=== PATIENT | male | born 1940 | race Asian ===

== ENCOUNTER 2019-08-20 14:40 | Emergency (ER) | payer OTHER, MEDICAID ==
[~2019-08-20] VITALS: Ht 165.1 cm; Wt 74.8 kg
[2019-08-20] MEDS ORDERED: TDAP DIPH,PERTUSS,TET VAC/PF 0.5 ML DISP.SYRIN IM ONE ×2 (15:00→15:39)
[2019-08-20] MEDS ORDERED: ASPI-605 PO (15:01)
[2019-08-20] MEDS ORDERED: QUET25TA PO ×2 (15:01)
[2019-08-20] MEDS ORDERED: CLON0.5T4 PO (15:01)
[2019-08-20] MEDS ORDERED: ATOR80TA PO (15:01)
--- NOTE | 2019-08-20 16:55 | NUR ---
[facility] ETA 830
--- NOTE | 2019-08-20 17:01 | NUR ---
Ambul #[id number] on will call/standby waiting for any earlier transports
--- NOTE | 2019-08-20 18:00 | NUR ---
Report given to SULY Finn
--- NOTE | 2019-08-20 18:15 | NUR ---
PT PACING TO AND FROM ROOM AND TOWARDS NURSES STATION PT IS AOX1 REORIENTED AND REDIRECTABLE PENDING TRANSPORT AEROSPACE CONTROL AND WARNING SYSTEMS AT 1830 BACK TO [facility] PT NAD LAC REPAIR DONE NAD MONITORED ACCORDINGLY RECEIVED HAND OFF AND SBAR FR OUTGOING DAYSHIFT RN
--- NOTE | 2019-08-20 18:59 | NUR ---
transport at bedside hand off and sbar given pt is nad aox1 redirectable reoriented
--- NOTE | 2019-08-20 19:06 | NUR ---
Patient transported back to [facility].
[2019-08-20 19:07] VITALS: BP 135/81
== END 2019-08-20 19:07 | disposition home or self-care (01) ==
LOC: ER 14:44
DX: S01.81XA Laceration without foreign body of other part of head, initial encounter (principal); Z79.82 Long term (current) use of aspirin; Z79.899 Other long term (current) drug therapy; Y04.2XXA Assault by strike against or bumped into by another person, initial encounter; Y93.89 Activity, other specified; Y92.89 Other specified places as the place of occurrence of the external cause; Y99.8 Other external cause status
CPT/HCPCS: 70450; 70486; 90715; A4217; A4663

== ENCOUNTER 2019-12-17 16:38 | Inpatient (IN) | payer OTHER, MEDICAID ==
[~2019-12-17] VITALS: Ht 152.4 cm; Wt 67.1 kg
[~2019-12-17 16:38] MED LIST: ASPI-605 PO; ATOR80TA PO; CLON0.5T4 PO; QUET25TA PO
--- NOTE | 2019-12-17 16:52 | NUR ---
brought in by private ambulance via gurney from [facility] living pt is ra, c/o of cough and fever speaks tagalog aox2 temp at 99.9F full code placed on AIRBORNE/DROPLET PRECAUTIONS MONITORED ACCORDINGLY BED AT LOWEST POSITION SIDERAILSX2 UP Addendum: 12/17/19 at 1859 by MARICASTIL PT IS AOX1 (NAME) ABLE TO SPEAK TAGALOG WORDS CLEARLY BUT ONLY UPON STIMULI (E.G. IV INSERTION, IN AND OUT FRANCOIS)
[2019-12-17] MEDS ORDERED: ACETAMINOPHEN ES 500 MG TABLET ONE (16:58)
[2019-12-17] MEDS ORDERED: ACETAMINOPHEN ES 500 MG TABLET PO ONE (17:00)
[2019-12-17] MEDS ORDERED: CLON1TAB12 PO (17:01)
--- NOTE | 2019-12-17 17:05 | NUR ---
called hanna wagner to find out who is the pt's doctor. left a message.
[2019-12-17 17:52] LABS: BASOPHILS % (AUTO) 0.3 % (0.0-2.0); EOSINOPHILS % (AUTO) 0.1 % (0.0-7.0); HEMATOCRIT 39.6 % (36.7-47.1); HEMOGLOBIN 13.3 g/dL (12.5-16.3); LYMPHOCYTES # (AUTO) 0.8 K/uL (20.0-40.0); LYMPHOCYTES % (AUTO) 16.6 % (20.5-51.5); MEAN CORPUSCULAR HEMOGLOBIN 28.9 uug (23.8-33.4); MEAN CORPUSCULAR HGB CONC 34 g/dL (32.5-36.3); MEAN CORPUSCULAR VOLUME 86.3 fL (73.0-96.2); MONOCYTES # (AUTO) 0.7 K/uL (2.0-10.0); MONOCYTES % (AUTO) 14.1 % (0.0-11.0); NEUTROPHILS # (AUTO) 3.2 K/uL (1.8-8.9); NEUTROPHILS % (AUTO) 68.9 % (38.5-71.5); PLATELET COUNT (AUTO) 90 K/uL (152-348); RED BLOOD CELL COUNT(AUTO) 4.59 MIL/uL (4.06-5.63); WHITE BLOOD COUNT (AUTO) 4.7 K/uL (3.6-10.2)
--- NOTE | 2019-12-17 18:00 | NUR ---
PT ABLE TO PASS SWALLOW TEST PT ABLE TO TOLERATE PO MEDS
[2019-12-17 18:03] LABS: CREATININE 1.1 mg/dL (0.6-1.3); POTASSIUM 3.6 mmol/L (3.5-5.1)
[2019-12-17 18:22] LABS: BILIRUBIN,TOTAL 0.6 mg/dL (0.2-1.0)
[2019-12-17 18:23] LABS: TOTAL PROTEIN, SERUM 7.1 g/dL (6.4-8.2)
[2019-12-17] MEDS ORDERED: IV NORMAL SALINE 500 ML IV ONE (18:24)
[2019-12-17 18:30] LABS: BAND % (MANUAL) 5 % (0-10); LYMPHOCYTES % (MANUAL) 16 % (20-40); MONOCYTES % (MANUAL) 12 % (2-10); NEUTROPHILS % (MANUAL) 67 % (42-75)
[2019-12-17] MEDS ORDERED: ENOXAPARIN SODIUM 60 MG/0.6 ML DISP.SYRIN SQ ONE ×2 (18:30→18:34)
[2019-12-17 18:47] LABS: *BILIRUBIN,URIN NEGATIVE (NEGATIVE); *BLOOD, URINE 2+ (NEGATIVE); *CLARITY,URINE CLEAR (CLEAR); *COLOR,URINE YELLOW (YELLOW); *KETONES,URINE NEGATIVE (NEGATIVE); LEUKOCYTE ESTERASE ,URINE NEGATIVE (NEGATIVE); NITRITE, URINE NEGATIVE (NEGATIVE); UGLUCOSE NEGATIVE (NEGATIVE)
[2019-12-17 18:52] LABS: SQUAMOUS EPITHELIAL CELL,UR FEW /HPF (NONE SEEN); WBC,URINE 0-3 /HPF (0-3)
[2019-12-17 18:53] LABS: MUCUS,URINE MODERATE /LPF (0-FEW)
--- NOTE | 2019-12-17 18:56 | NUR ---
PT OK TO ADMIT TO TELE RM 206 DX: NSTEMI, NEW ONSET AFIB POSSIBLE COVID UNDER : BENEDICTO (SEEN BY BENEDICTO AT BEDSIDE) PENDING AVAILABILITY OF RECEIVING RN
[2019-12-17] MEDS ORDERED: ACETAMINOPHEN 650 MG SUPP.RECT RC PRN (19:00)
[2019-12-17] MEDS ORDERED: ONDANSETRON ODT 4 MG TAB.RAPDIS SL PRN (19:00)
--- NOTE | 2019-12-17 19:01 | NUR ---
HAND OFF AND SBAR GIVEN TO RESTAURANT GREETER NURSE
[2019-12-17 20:00] VITALS: BP 94/47
--- NOTE | 2019-12-17 20:00 | NUR ---
Pt. admitted to tele , under care of BENEDICTO BALDWIN Belongs List completed
--- NOTE | 2019-12-17 20:30 | NUR ---
Received patient from ER. Dx: PNA r/o COVID. No signs of acute distress noted. Patient is A/Ox1, garbled/clear speech at times. Heplock on the left AC is intact and patent. Skin assessment done, no open wound, multiple small scabs on lower extremities. Vitals are WNL, no fevers noted. Safety measures initiated. Bed is low and locked, call light within reach. Patient oriented to unit and room. Will continue to monitor.
[2019-12-17] MEDS: IV D5 1/2 NS 1000 ML 1,000 ML IV PRN (23:55)
[2019-12-18 01:00] VITALS: BP 144/93
[2019-12-18 05:00] VITALS: BP 105/72
--- NOTE | 2019-12-18 06:11 | NUR ---
Patient confused, hard to redirect. Wants to get up to go to restroom but very unsteady. Able to help to the restroom with 2 people. ordered 1:1 sitter for morning shift, notified rail gang supervisor. Patient also pulled out IV when trying to get out of bed, inserted new one on the right forearm #20. Patient also noted with temp 99.6, cooling measures applied.
[2019-12-18 06:28] LABS: BASOPHILS % (AUTO) 0.2 % (0.0-2.0); EOSINOPHILS % (AUTO) 0.3 % (0.0-7.0); HEMATOCRIT 41.2 % (36.7-47.1); HEMOGLOBIN 13.6 g/dL (12.5-16.3); LYMPHOCYTES # (AUTO) 0.8 K/uL (20.0-40.0); MEAN CORPUSCULAR HEMOGLOBIN 28.9 uug (23.8-33.4); MEAN CORPUSCULAR HGB CONC 33 g/dL (32.5-36.3); MEAN CORPUSCULAR VOLUME 87.8 fL (73.0-96.2); MONOCYTES # (AUTO) 0.6 K/uL (2.0-10.0); MONOCYTES % (AUTO) 10.8 % (0.0-11.0); NEUTROPHILS # (AUTO) 4.1 K/uL (1.8-8.9); NEUTROPHILS % (AUTO) 73.7 % (38.5-71.5); PLATELET COUNT (AUTO) 98 K/uL (152-348); RED BLOOD CELL COUNT(AUTO) 4.69 MIL/uL (4.06-5.63); WHITE BLOOD COUNT (AUTO) 5.5 K/uL (3.6-10.2)
[2019-12-18 06:54] LABS: THYROID STIMULATING HORMONE 2.365 mIU/mL (0.358-3.740)
--- NOTE | 2019-12-18 07:20 | NUR ---
Received patient resting in bed. No s/s of acute distress or pain. Bed in lowest position, side rails up x2, call light within reach, sitter at bedside. Will continue to monitor.
[2019-12-18 07:33] LABS: BILIRUBIN,TOTAL 0.8 mg/dL (0.2-1.0); CREATININE 0.9 mg/dL (0.6-1.3); MAGNESIUM 1.9 mg/dL (1.8-2.4); PHOSPHOROUS 2.5 mg/dL (2.5-4.9); POTASSIUM 3.6 mmol/L (3.5-5.1); TOTAL PROTEIN, SERUM 7.3 g/dL (6.4-8.2)
[2019-12-18 07:39] VITALS: BP 100/58
[2019-12-18 07:52] LABS: EOSINOPHILS % (MANUAL) 1 % (0-8); LYMPHOCYTES % (MANUAL) 13 % (20-40); MONOCYTES % (MANUAL) 14 % (2-10); NEUTROPHILS % (MANUAL) 72 % (42-75)
[2019-12-18 12:00] VITALS: BP 113/79
[2019-12-18 14:37] VITALS: BP 114/57
--- NOTE | 2019-12-18 18:37 | NUR ---
patient received at around 330pm, sitter at bedside, patient frequently impulsive and trying to get out of bed. Bed in low position side rails up x2, bed alarm on.
--- NOTE | 2019-12-18 19:20 | NUR ---
Received patient resting in bed. No s/s of acute distress or pain. patient calm at this moment. Bed in lowest position, side rails up x2, call light within reach, sitter at bedside. Will continue to monitor.
[2019-12-18 20:00] VITALS: BP 134/67
[2019-12-18] MEDS ORDERED: ENOXAPARIN SODIUM 40 MG/0.4 ML DISP.SYRIN SQ ONE (21:00)
[2019-12-18] MEDS ORDERED: VANCOMYCIN IV 1,000 MG in IV DEXTROSE 5% 250 ML IV SCH ×3 (21:00→22:00)
--- NOTE | 2019-12-18 21:08 | NUR ---
PHARMACY CLINICAL NOTES (VANCOMYCIN DOSING) S: 78 yo male with dx of Acute febrile illness, r/o Covid 19, Poss HCAP. ID ordered Vancomcyin O: BUN/SCR 22/0.9, WBC 5.5 , T max 103, DOSING WT 142 LBS A/P: will dose Vancomcyin as 1000 mg q20h , estimate peak 29 trough of 18 , plan to order trough prior to 4th dose of Vanco not ordered yet. Will continue to monitor renal fxn and levels and adjust the dose as it becomes necessary.
[2019-12-18] MEDS: ATORVASTATIN 40 MG TABLET PO SCH (21:10)
[2019-12-18] MEDS: ASPIRIN EC 81 MG TABLET.DR PO SCH (21:10)
[2019-12-18] MEDS: CEFEPIME HCL 1 G in IV DEXTROSE 5% 50 ML IV SCH (21:10)
[2019-12-18] MEDS ORDERED: CEFEPIME HCL 1 G in IV DEXTROSE 5% 50 ML IV SCH (22:00)
[2019-12-19] VITALS: BP 108/65
[2019-12-19] MEDS: ACETAMINOPHEN 325 MG TABLET PO PRN ×3 (00:58→16:12)
[2019-12-19 04:00] VITALS: BP 106/63
[2019-12-19 05:29] LABS: BASOPHILS % (AUTO) 0.2 % (0.0-2.0); HEMOGLOBIN 13.3 g/dL (12.5-16.3); LYMPHOCYTES # (AUTO) 0.8 K/uL (20.0-40.0); LYMPHOCYTES % (AUTO) 11.6 % (20.5-51.5); MEAN CORPUSCULAR HEMOGLOBIN 28.9 uug (23.8-33.4); MEAN CORPUSCULAR HGB CONC 33 g/dL (32.5-36.3); MONOCYTES # (AUTO) 0.4 K/uL (2.0-10.0); MONOCYTES % (AUTO) 5.7 % (0.0-11.0); NEUTROPHILS # (AUTO) 5.6 K/uL (1.8-8.9); NEUTROPHILS % (AUTO) 82.5 % (38.5-71.5); PLATELET COUNT (AUTO) 108 K/uL (152-348); WHITE BLOOD COUNT (AUTO) 6.8 K/uL (3.6-10.2)
[2019-12-19 06:20] LABS: BILIRUBIN,TOTAL 0.9 mg/dL (0.2-1.0); MAGNESIUM 1.9 mg/dL (1.8-2.4); PHOSPHOROUS 2.6 mg/dL (2.5-4.9); POTASSIUM 3.3 mmol/L (3.5-5.1); TOTAL PROTEIN, SERUM 6.3 g/dL (6.4-8.2)
--- NOTE | 2019-12-19 06:28 | NUR ---
Patient has remained stable throughout the evening. patient bathed and all linens changed. Patient is resting comfortably with no signs of distress.
[2019-12-19] MEDS ORDERED: POTASSIUM CHLORIDE 20 MEQ TAB.PRT.SR PO ONE (07:00)
--- NOTE | 2019-12-19 07:15 | NUR ---
Received patient resting in bed, awake and alert. No acute distress noted. Patient denies pain and discomfort. Bed in lowest position, side rails up x2, call light within reach, sitter at bedside.
[2019-12-19 08:00] VITALS: BP 134/82
[2019-12-19] MEDS: ASPIRIN EC 81 MG TABLET.DR PO SCH (08:29)
[2019-12-19] MEDS: IV D5 1/2 NS 1000 ML 1,000 ML IV PRN (09:33)
--- NOTE | 2019-12-19 09:58 | NUR ---
PHARMACY CLINICAL NOTES (VANCOMYCIN DOSING) S: To continue vanco dosing for this 78 yo male with dx of Acute febrile illness, r/o Covid 19, Poss HCAP. O: BUN/SCR 24/08 , WBC 6.8 , T max 100.7 ht 152 cm wt 64 kg A/P: will continue as Vancomcyin as 1000 mg q22h , estimated trough of 16 mcg/ml at steady state. 2nd dose today at 2100. Plan to order trough prior to 4th dose of Vanco (not ordered yet). Will continue to monitor renal fxn and levels and adjust the dose as it becomes necessary. Will follow
[2019-12-19 12:00] VITALS: BP 126/84
[2019-12-19 16:27] VITALS: BP 135/80
[2019-12-19] MEDS ORDERED: HYDROXYCHLOROQUINE SULFATE 200 MG TABLET PO ONE (16:30)
--- NOTE | 2019-12-19 18:34 | NUR ---
Patient rested throughout the day. No S/S of acute distress. Plaquenil started. safety measures provided. Will endorse to oncoming nurse.
[2019-12-19 20:04] VITALS: BP 125/77
--- NOTE | 2019-12-19 20:07 | NUR ---
per mayte in pharmacy. ok to administer lovenox despite plt at 108
[2019-12-19] MEDS: CEFEPIME HCL 1 G in IV DEXTROSE 5% 50 ML IV SCH (20:28)
[2019-12-19] MEDS: ENOXAPARIN SODIUM 40 MG/0.4 ML DISP.SYRIN SQ SCH (20:29)
[2019-12-19] MEDS: ATORVASTATIN 40 MG TABLET PO SCH (20:29)
[2019-12-19] MEDS ORDERED: VANCOMYCIN IV 1,000 MG in IV DEXTROSE 5% 250 ML IV SCH (21:00)
[2019-12-20] MEDS: IV D5 1/2 NS 1000 ML 1,000 ML IV PRN ×2 (00:06→14:07)
[2019-12-20] MEDS: ACETAMINOPHEN 325 MG TABLET PO PRN ×2 (00:50→12:29)
[2019-12-20 01:17] VITALS: BP 133/81
--- NOTE | 2019-12-20 04:25 | NUR ---
Patient a/ox1. No s/s of acute distress noted. v/s stable with fever at midnight. Tylenol administered. Afebrile. No changes. 2L NC sat. A-fib on tele monitor. safety precautions in place. all needs met. Will continue to monitor. Addendum: 12/20/19 at 0441 by PATY HARRISON RN correction: a flutter on tele monitor.
[2019-12-20 04:50] VITALS: BP 105/58
[2019-12-20 06:21] LABS: BASOPHILS % (AUTO) 0.4 % (0.0-2.0); HEMATOCRIT 41.4 % (36.7-47.1); HEMOGLOBIN 13.7 g/dL (12.5-16.3); LYMPHOCYTES # (AUTO) 0.5 K/uL (20.0-40.0); LYMPHOCYTES % (AUTO) 5.5 % (20.5-51.5); MEAN CORPUSCULAR HEMOGLOBIN 28.7 uug (23.8-33.4); MEAN CORPUSCULAR HGB CONC 33 g/dL (32.5-36.3); MEAN CORPUSCULAR VOLUME 86.4 fL (73.0-96.2); MONOCYTES # (AUTO) 0.3 K/uL (2.0-10.0); MONOCYTES % (AUTO) 2.8 % (0.0-11.0); NEUTROPHILS # (AUTO) 8.7 K/uL (1.8-8.9); NEUTROPHILS % (AUTO) 91.3 % (38.5-71.5); PLATELET COUNT (AUTO) 122 K/uL (152-348); RED BLOOD CELL COUNT(AUTO) 4.79 MIL/uL (4.06-5.63); WHITE BLOOD COUNT (AUTO) 9.5 K/uL (3.6-10.2)
[2019-12-20 06:39] LABS: BILIRUBIN,TOTAL 0.8 mg/dL (0.2-1.0); MAGNESIUM 1.9 mg/dL (1.8-2.4); PHOSPHOROUS 2.1 mg/dL (2.5-4.9); POTASSIUM 3.8 mmol/L (3.5-5.1); TOTAL PROTEIN, SERUM 6.2 g/dL (6.4-8.2)
[2019-12-20] MEDS: HYDROXYCHLOROQUINE SULFATE 200 MG TABLET PO SCH (08:11)
[2019-12-20] MEDS: ASPIRIN EC 81 MG TABLET.DR PO SCH (08:11)
--- NOTE | 2019-12-20 09:00 | NUR ---
Dr. Alexander here to see pt. Full report given. New orders received.
--- NOTE | 2019-12-20 10:20 | NUR ---
NICOLASA Granados here to see pt. Full report given. No new orders received.
[2019-12-20 12:33] VITALS: BP 145/98
--- NOTE | 2019-12-20 12:38 | NUR ---
Pt noted to have 102.8F fever. Tylenol given PRN. Blood/urine cultures ordered per protocol.
[2019-12-20 16:00] VITALS: BP 95/54
[2019-12-20] MEDS ORDERED: NEUTRA PHOS PACKET PO ONE (16:00)
[2019-12-20 20:09] VITALS: BP 138/87
[2019-12-20] MEDS: CEFEPIME HCL 1 G in IV DEXTROSE 5% 50 ML IV SCH (22:12)
[2019-12-20] MEDS: ATORVASTATIN 40 MG TABLET PO SCH (22:13)
[2019-12-20] MEDS: ENOXAPARIN SODIUM 40 MG/0.4 ML DISP.SYRIN SQ SCH (22:14)
[2019-12-21 00:42] VITALS: BP 133/66
[2019-12-21] MEDS: ACETAMINOPHEN 325 MG TABLET PO PRN ×2 (00:56→16:55)
[2019-12-21 04:20] VITALS: BP 114/65
[2019-12-21] MEDS: IV D5 1/2 NS 1000 ML 1,000 ML IV PRN (05:10)
[2019-12-21 06:37] LABS: CREATININE 0.9 mg/dL (0.6-1.3); POTASSIUM 3.2 mmol/L (3.5-5.1)
[2019-12-21 06:38] LABS: BASOPHILS % (AUTO) 0.1 % (0.0-2.0); EOSINOPHILS % (AUTO) 0.1 % (0.0-7.0); HEMATOCRIT 38.3 % (36.7-47.1); HEMOGLOBIN 12.7 g/dL (12.5-16.3); LYMPHOCYTES # (AUTO) 0.6 K/uL (20.0-40.0); LYMPHOCYTES % (AUTO) 9.1 % (20.5-51.5); MEAN CORPUSCULAR HEMOGLOBIN 28.7 uug (23.8-33.4); MEAN CORPUSCULAR HGB CONC 33 g/dL (32.5-36.3); MEAN CORPUSCULAR VOLUME 86.4 fL (73.0-96.2); MONOCYTES # (AUTO) 0.4 K/uL (2.0-10.0); MONOCYTES % (AUTO) 5.8 % (0.0-11.0); NEUTROPHILS # (AUTO) 5.5 K/uL (1.8-8.9); NEUTROPHILS % (AUTO) 84.9 % (38.5-71.5); PLATELET COUNT (AUTO) 142 K/uL (152-348); RED BLOOD CELL COUNT(AUTO) 4.43 MIL/uL (4.06-5.63); WHITE BLOOD COUNT (AUTO) 6.4 K/uL (3.6-10.2)
[2019-12-21 06:52] LABS: MAGNESIUM 1.8 mg/dL (1.8-2.4); PHOSPHOROUS 2.8 mg/dL (2.5-4.9)
--- NOTE | 2019-12-21 08:00 | NUR ---
received pt. resting in bed oriented to self. Pt. appears in no distress. Oxygen on room air saturating 86-89%. On 2L pt. saturating at 93%. IV in R forearm 20 gauge intact patent running prescribed fluid. pt. controlled A.fib HR in 70s. safety measures in place. call light within reach. will continue to monitor pt.
[2019-12-21 08:42] VITALS: BP 132/86
--- NOTE | 2019-12-21 09:03 | NUR ---
spoke to pharmacy reported QTC of 492 from ekg done this morning at 5 AM. Pharmacist okayed to give plaquenal to pt.
[2019-12-21] MEDS: ASPIRIN EC 81 MG TABLET.DR PO SCH (09:09)
[2019-12-21] MEDS: HYDROXYCHLOROQUINE SULFATE 200 MG TABLET PO SCH (09:09)
[2019-12-21] MEDS: POTASSIUM CHLORIDE 40 MEQ in IV D5 1/2 NS 1000 ML 1,000 ML IV PRN (09:44)
--- NOTE | 2019-12-21 10:24 | NUR ---
pt. is pulling off nasal canula. On room air pt. desaturates in mid 80s. Received order for soft wrist restraints from Dr. Alexander. On NC pt.'s oxygen is within normal range.
[2019-12-21 15:00] VITALS: BP 142/105
[2019-12-21 17:50] LABS: BILIRUBIN,DIRECT 0.2 mg/dL (0.0-0.2); BILIRUBIN,TOTAL 0.4 mg/dL (0.2-1.0); TOTAL PROTEIN, SERUM 5.9 g/dL (6.4-8.2)
--- NOTE | 2019-12-21 17:51 | NUR ---
pt. oxygen has been desaturating throughout shift. Repositioned pt, elevated HOB multiple times. Received pt. on room air O2 saturating in mid 80s on room air, increased to 2 L at start of shift and have been increasing LPM as pt. is not tolerating. Pt. is now saturating at 87-89% on 6L. Switched to non rebreather mask. Oxygen saturation at 93% on non rebreather mask. Updated Dr. Granados awaiting response
[2019-12-21] MEDS ORDERED: TOCILIZUMAB 400 MG in IV NORMAL SALINE 80 ML IV ONE (18:00)
--- NOTE | 2019-12-21 18:36 | NUR ---
pt. saturating 95% on 10 L non rebreather mask. Pt. has non productive cough, SOB. Dr. Granados made aware, have not heard back. Pt. had temperature of 101. 3. Started cooling measures and gave pt. tylenol. Temperature decreased to 98.8. pt. has bilateral soft wrist restraints to prevent disruption of oxygen. made pt. comfortable. will endorse to pm nurse
[2019-12-21 20:00] VITALS: BP 111/71
[2019-12-21] MEDS: ENOXAPARIN SODIUM 40 MG/0.4 ML DISP.SYRIN SQ SCH (21:00)
[2019-12-21] MEDS: CEFEPIME HCL 1 G in IV DEXTROSE 5% 50 ML IV SCH (21:39)
[2019-12-21] MEDS: ATORVASTATIN 40 MG TABLET PO SCH (21:40)
[2019-12-22] VITALS (7 sets, daily range): BP systolic 122–140; BP diastolic 64–88
[2019-12-22] MEDS: POTASSIUM CHLORIDE 40 MEQ in IV D5 1/2 NS 1000 ML 1,000 ML IV PRN ×2 (00:13→15:54)
--- NOTE | 2019-12-22 06:37 | NUR ---
Patient slept well throughout shift. On O2 at 4lpm via NC saturation at 93-94%. Remains afebrile this shift. On bilateral soft wrist restraints to prevent removing of nasal cannula. Turned and repositioned. Will endorse accordingly
--- NOTE | 2019-12-22 07:25 | NUR ---
Received patient resting in bed. No S/S of acute distress, pt on continuous pulse ox. Bed in lowest position, side rails up x2, call light within reach. Will continue to monitor.
[2019-12-22 07:55] LABS: BASOPHILS % (AUTO) 0.3 % (0.0-2.0); EOSINOPHILS % (AUTO) 1.2 % (0.0-7.0); HEMATOCRIT 40.5 % (36.7-47.1); HEMOGLOBIN 13.4 g/dL (12.5-16.3); LYMPHOCYTES # (AUTO) 0.7 K/uL (20.0-40.0); LYMPHOCYTES % (AUTO) 18.5 % (20.5-51.5); MEAN CORPUSCULAR HEMOGLOBIN 28.4 uug (23.8-33.4); MEAN CORPUSCULAR HGB CONC 33 g/dL (32.5-36.3); MEAN CORPUSCULAR VOLUME 85.9 fL (73.0-96.2); MONOCYTES # (AUTO) 0.3 K/uL (2.0-10.0); MONOCYTES % (AUTO) 8.3 % (0.0-11.0); NEUTROPHILS # (AUTO) 2.7 K/uL (1.8-8.9); NEUTROPHILS % (AUTO) 71.7 % (38.5-71.5); PLATELET COUNT (AUTO) 169 K/uL (152-348); RED BLOOD CELL COUNT(AUTO) 4.71 MIL/uL (4.06-5.63); WHITE BLOOD COUNT (AUTO) 3.8 K/uL (3.6-10.2)
[2019-12-22] MEDS: ASPIRIN EC 81 MG TABLET.DR PO SCH (08:42)
[2019-12-22] MEDS: HYDROXYCHLOROQUINE SULFATE 200 MG TABLET PO SCH (08:42)
[2019-12-22 08:49] LABS: BILIRUBIN,TOTAL 0.9 mg/dL (0.2-1.0); CREATININE 0.9 mg/dL (0.6-1.3); PHOSPHOROUS 2.5 mg/dL (2.5-4.9); POTASSIUM 3.7 mmol/L (3.5-5.1); TOTAL PROTEIN, SERUM 6.2 g/dL (6.4-8.2)
[2019-12-22 11:06] LABS: A/G RATIO 0.8 (0.7-1.7); ALBUMIN 2.4 g/dL (2.9-4.4); ALPHA-1-GLOBULIN 0.3 g/dL (0.0-0.4); BETA GLOBULIN 0.8 g/dL (0.7-1.3); GAMMA GLOBULIN 1.1 g/dL (0.4-1.8); GLOBULIN, TOTAL 3.2 g/dL (2.2-3.9); M-SPIKE Not Observed g/dL (Not Observed)
--- NOTE | 2019-12-22 18:24 | NUR ---
Patient awake throughout shift, agitated and restless at times. On O2 at 4lpm via NC saturation at 95-96% and on continuous pulse ox. Remains afebrile throughout shift. On bilateral soft wrist restraints to prevent removing of nasal cannula. Safety measures provided. Will endorse to oncoming nurse.
[2019-12-22] MEDS ORDERED: MICAFUNGIN SODIUM 100 MG in IV NORMAL SALINE 100 ML IV SCH (20:00)
--- NOTE | 2019-12-22 21:00 | NUR ---
Patient had a massive BM. Full bed bath and full linen change required. patient tolerated cleaning well. No discomfort or distress noted.
[2019-12-22] MEDS: CEFEPIME HCL 1 G in IV DEXTROSE 5% 50 ML IV SCH (21:22)
[2019-12-22] MEDS: ACETAMINOPHEN 325 MG TABLET PO PRN (21:23)
[2019-12-22] MEDS: ATORVASTATIN 40 MG TABLET PO SCH (21:23)
[2019-12-22] MEDS: ENOXAPARIN SODIUM 40 MG/0.4 ML DISP.SYRIN SQ SCH (21:23)
[2019-12-23 04:00] VITALS: BP 140/89
[2019-12-23] MEDS: POTASSIUM CHLORIDE 40 MEQ in IV D5 1/2 NS 1000 ML 1,000 ML IV PRN (06:37)
--- NOTE | 2019-12-23 06:47 | NUR ---
Patient was extremely restless all night, with frequent episodes of soiling himself, then playing with it, stripping off gown and blanket, pulling out IV lines, pulling off pulse ox and nasal cannula, and attempting to get out of bed. Nothing pharmacologically was able to stop this behavior. This patient was previously on a 1:1 sitter for this behavior, however for some reason he no longer has a sitter, and is in need of one.
[2019-12-23 07:28] LABS: BASOPHILS % (AUTO) 0.4 % (0.0-2.0); EOSINOPHILS # (AUTO) 0.1 K/uL (0.0-0.7); HEMATOCRIT 42.5 % (36.7-47.1); LYMPHOCYTES # (AUTO) 0.7 K/uL (20.0-40.0); MONOCYTES # (AUTO) 0.3 K/uL (2.0-10.0); NEUTROPHILS % (AUTO) 73.3 % (38.5-71.5)
[2019-12-23 07:35] LABS: EOSINOPHILS % (AUTO) 1.8 % (0.0-7.0); HEMOGLOBIN 14.1 g/dL (12.5-16.3); LYMPHOCYTES % (AUTO) 16.7 % (20.5-51.5); MEAN CORPUSCULAR HEMOGLOBIN 28.7 uug (23.8-33.4); MEAN CORPUSCULAR HGB CONC 33 g/dL (32.5-36.3); MEAN CORPUSCULAR VOLUME 86.8 fL (73.0-96.2); MONOCYTES % (AUTO) 7.8 % (0.0-11.0); NEUTROPHILS # (AUTO) 2.9 K/uL (1.8-8.9)
[2019-12-23 07:36] LABS: PLATELET COUNT (AUTO) 228 K/uL (152-348)
[2019-12-23 07:41] LABS: BILIRUBIN,TOTAL 1.2 mg/dL (0.2-1.0); CREATININE 0.9 mg/dL (0.6-1.3); POTASSIUM 4.2 mmol/L (3.5-5.1); TOTAL PROTEIN, SERUM 6.6 g/dL (6.4-8.2)
--- NOTE | 2019-12-23 07:50 | NUR ---
Patient had a near miss fall as he is restless and climbed out of bed with restraints on, notified train operations supervisor and Director Tatiana that a sitter is needed. No sitter at this time, rubber compounder supervisor to bring jacky vest. This check writer notified administration that this patient is at a high risk for falls.
[2019-12-23] MEDS: ASPIRIN EC 81 MG TABLET.DR PO SCH (09:11)
[2019-12-23] MEDS: HYDROXYCHLOROQUINE SULFATE 200 MG TABLET PO SCH (09:11)
--- NOTE | 2019-12-23 09:30 | NUR ---
Mower vest placed on patient size large. Sitter to be sent to room per administration.
[2019-12-23 10:56] VITALS: BP 153/83
[2019-12-23 14:00] VITALS: BP 136/94
[2019-12-23] MEDS ORDERED: Z GUARD REMEDY PASTE 57 GM TUBE TOP PRN (14:30)
--- NOTE | 2019-12-23 18:00 | NUR ---
Patient reported having chest pain, ekg ordered, and troponin stat ordered per dr. denney. Cardio to see patient on rounding.
--- NOTE | 2019-12-23 19:40 | NUR ---
Received pt resting in bed. 1:1 sitter at bedside for safety. Pt awake and alert only to name. Safety precautions maintained. Pt on 4L NC, no acute distress noted. VSS, afebrile. Assisted in turning and repositioning. Continue plan of care.
--- NOTE | 2019-12-23 19:47 | NUR ---
patient was extremely restless through the day, discussed needs for medication or psychiatric consultatio with dr. Lopes. Psych consulted Dr. Arana, but he will not see the patient until Dr. Cheney speaks to him directly to help with behavioral concerns of taking off iv's and monitor and other behavioral disturbances.
[2019-12-23 20:00] VITALS: BP 120/50
[2019-12-23] MEDS: ATORVASTATIN 40 MG TABLET PO SCH (21:17)
[2019-12-23] MEDS: CEFEPIME HCL 1 G in IV DEXTROSE 5% 50 ML IV SCH (21:18)
[2019-12-23] MEDS: ENOXAPARIN SODIUM 40 MG/0.4 ML DISP.SYRIN SQ SCH (21:30)
[2019-12-24] VITALS: BP 140/85
[2019-12-24 04:00] VITALS: BP 147/87
--- NOTE | 2019-12-24 06:30 | NUR ---
AM care rendered. 1:1 sitter at bedside for safety. Restraints on. Pt on 4L NC with O2 sats up to 96%. No acute distress noted. Safety precautions maintained. VSS, afebrile. Continue plan of care.
--- NOTE | 2019-12-24 07:30 | NUR ---
Received patient in bed, awake, AOx1 to self. 1:1 sitter at bedside. Patient has mittens on to BUE because takes off O2. NC. No signs of distress seen at this time. Rt. FA HL in place and flushed. Safety and fall prevention in place. Call light in reach, bed in low and locked position. All needs met at this time. Will continue to monitor.
[2019-12-24] MEDS: ASPIRIN EC 81 MG TABLET.DR PO SCH (09:20)
[2019-12-24 12:00] VITALS: BP 110/50
[2019-12-24 16:05] VITALS: BP 125/60
--- NOTE | 2019-12-24 18:59 | NUR ---
Patient in bed, awake, AOx1 to self. 1:1 sitter at bedside. Patient has mittens on to BUE because takes off O2. NC. No signs of distress seen through the shift. Rt. FA HL in place and flushed. Safety and fall prevention in place. Call light in reach, bed in low and locked position. All needs met throughout the shift. Will report to oncoming nurse.
--- NOTE | 2019-12-24 19:30 | NUR ---
RECEIVED PT IN NO ACUTE DISTRESS. IV INTACT. SITTER AND RESTRAINT FOR SAFETY. SAFETY AND COMFORT PROVIDED. WILL CONTINUE TO MONITOR.
[2019-12-24 20:00] VITALS: BP 130/89
[2019-12-24] MEDS: ATORVASTATIN 40 MG TABLET PO SCH (21:18)
[2019-12-24] MEDS: ACETAMINOPHEN 325 MG TABLET PO PRN (21:18)
[2019-12-24] MEDS: ENOXAPARIN SODIUM 40 MG/0.4 ML DISP.SYRIN SQ SCH (21:22)
[2019-12-25 00:24] VITALS: BP 140/86
[2019-12-25] MEDS: POTASSIUM CHLORIDE 40 MEQ in IV D5 1/2 NS 1000 ML 1,000 ML IV PRN (01:21)
[2019-12-25] MEDS: ACETAMINOPHEN 325 MG TABLET PO PRN (02:34)
[2019-12-25 04:30] VITALS: BP 138/67
--- NOTE | 2019-12-25 06:30 | NUR ---
PT SLEPT INTERMITTENTLY. PT IN NO ACUTE DISTRESS. IV INTACT. SITTER AND RESTRAINT FOR SAFETY. PRESCRIBED MEDICATION GIVEN AND PT TOLERATED IT WELL. PT GIVEN TYLENOL FOR 0234H AND 2117H FOR PAIN. PT TOLERATED IT WELL. SAFETY AND COMFORT PROVIDED. ALL NEEDS ARE MET.WILL ENDORSE TO INCOMING NURSE FOR CONTINUITY OF CARE.
[2019-12-25 06:50] LABS: BASOPHILS % (AUTO) 0.3 % (0.0-2.0); EOSINOPHILS # (AUTO) 0.1 K/uL (0.0-0.7); EOSINOPHILS % (AUTO) 0.9 % (0.0-7.0); HEMATOCRIT 42.2 % (36.7-47.1); HEMOGLOBIN 14.1 g/dL (12.5-16.3); LYMPHOCYTES # (AUTO) 0.9 K/uL (20.0-40.0); LYMPHOCYTES % (AUTO) 12.7 % (20.5-51.5); MEAN CORPUSCULAR HEMOGLOBIN 28.6 uug (23.8-33.4); MEAN CORPUSCULAR HGB CONC 33 g/dL (32.5-36.3); MONOCYTES # (AUTO) 0.4 K/uL (2.0-10.0); MONOCYTES % (AUTO) 6.3 % (0.0-11.0); NEUTROPHILS # (AUTO) 5.7 K/uL (1.8-8.9); NEUTROPHILS % (AUTO) 79.8 % (38.5-71.5); PLATELET COUNT (AUTO) 259 K/uL (152-348); RED BLOOD CELL COUNT(AUTO) 4.91 MIL/uL (4.06-5.63); WHITE BLOOD COUNT (AUTO) 7.1 K/uL (3.6-10.2)
[2019-12-25 07:37] LABS: CREATININE 0.9 mg/dL (0.6-1.3); MAGNESIUM 2.1 mg/dL (1.8-2.4); PHOSPHOROUS 2.6 mg/dL (2.5-4.9); POTASSIUM 4.2 mmol/L (3.5-5.1)
[2019-12-25 08:00] VITALS: BP 104/60
--- NOTE | 2019-12-25 08:00 | NUR ---
Received patient in bed, awake and confused. No signs of distress. On Oxygen at 4LPM, saturating 93%. No complain of Pain or discomfort. remains on 1:1 sitter for safety. All needs attended and met. kept clean and comfortable. Will continue to monitor.
[2019-12-25] MEDS: ASPIRIN EC 81 MG TABLET.DR PO SCH (08:27)
[2019-12-25 12:00] VITALS: BP 142/82
--- NOTE | 2019-12-25 12:00 | NUR ---
Removed Hand Mittens/restraints, will continue with 1:1 sitter, will continue to monitor for Agitation/Anxiety.
--- NOTE | 2019-12-25 14:30 | NUR ---
Patient with Order to be discharge to [facility] today.
[2019-12-25 16:11] VITALS: BP 145/74
--- NOTE | 2019-12-25 18:04 | NUR ---
Patient in bed, awake and confused, No signs of distress noted. On Oxygen at 4L via Nasal canula, saturating 94%. No complain of pain or discomfort. Patient with Discharge Order today to [facility],Called SNF spoke with Janey and endorsed accordingly, awaiting for Transportation.
--- NOTE | 2019-12-25 18:51 | NUR ---
Patient was discharge to [facility], All belongings was signed and sent to Patient, Removed IV site and Advertising Analyst, Patient was Picked up by 2 EMT in stable condition.
== END 2019-12-25 18:45 | DRG 177 ==
LOC: ER 16:39 → TELE 19:47
PROVIDERS: ADMIT Hospitalist; ATTEND Internal Medicine
DX: U07.1 COVID-19 (principal); J12.89 Other viral pneumonia; N17.0 Acute kidney failure with tubular necrosis; I21.A1 Myocardial infarction type 2; G93.41 Metabolic encephalopathy; J69.0 Pneumonitis due to inhalation of food and vomit; M62.82 Rhabdomyolysis; E44.0 Moderate protein-calorie malnutrition; D69.6 Thrombocytopenia, unspecified; E11.9 Type 2 diabetes mellitus without complications; E78.5 Hyperlipidemia, unspecified; E83.39 Other disorders of phosphorus metabolism; E87.6 Hypokalemia; F01.50 Vascular dementia, unspecified severity, without behavioral disturbance, psychotic disturbance, mood disturbance, and anxiety; F41.9 Anxiety disorder, unspecified; I48.91 Unspecified atrial fibrillation; Z79.82 Long term (current) use of aspirin; Z68.28 Body mass index [BMI] 28.0-28.9, adult; I49.3 Ventricular premature depolarization
CPT/HCPCS: 36415; 70030-TC; 71045; 83605; 83615; 83735; 83970; 84100; 84155; 84165; 84443; 85025; 85610; 85730; 86140; 87040; 87086; 87400; 93005; A9150; C1758; G0378; J0692; J1650; J3262; J3370; J3480; J3490; J7040; J7060; U0003-CS